=== PATIENT | female | born 2000 | race Two or more races ===

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

== ENCOUNTER 2022-02-10 01:19 | Inpatient (IN) ==
[2022-02-10 02:06] LABS: Bacteria,Urine Occasional /HPF (Few); Mucus,Urine Occasional /LPF (Occasional); RBC,Urine 1 /HPF (0-4)
[2022-02-10 02:07] LABS: Bilirubin,Urine Negative (Negative); Blood, Urine Negative (Negative); Glucose,Urine (UA) Negative (Negative); Ketones,Urine Negative (Negative); Nitrite,Urine Negative (Negative); Protein,Urine Negative (Negative); Urine Appearance Clear (Clear); Urine Color Yellow (Yellow); Urine Specific Gravity 1.015 (1.001-1.035); Urine pH 7.5 (4.5-8.0)
[2022-02-10] MEDS ORDERED: METHYLERGONOVINE 0.2 MG/1 ML AMP IM PRN (06:35)
[2022-02-10] MEDS ORDERED: miSOPROStoL 200 MCG TABLET RECTAL PRN (06:35)
[2022-02-10] MEDS ORDERED: ACETAMINOPHEN 500 MG TABLET PO PRN (06:35)
[2022-02-10] MEDS ORDERED: OXYTOCIN/LR 20 UNIT/1,000 ML BAG IV ONE ×2 (06:35→15:13)
[2022-02-10] MEDS ORDERED: ONDANSETRON 4 MG/2 ML VIAL IV PRN ×2 (06:35→15:13)
[2022-02-10] MEDS ORDERED: LACTATED RINGERS 500 ML IV PRN (06:35)
[2022-02-10] MEDS ORDERED: BUTORPHANOL 2 MG/ML VIAL IV PRN (06:35)
[2022-02-10] MEDS ORDERED: BUTORPHANOL 1 MG/ML VIAL IV PRN (06:35)
[2022-02-10] MEDS ORDERED: MEPERIDINE 25 MG/1 ML VIAL IV PRN (06:35)
[2022-02-10] MEDS ORDERED: CARBOPROST TROMETHAMINE 250 MCG/ML AMP IM PRN (06:35)
[2022-02-10] MEDS ORDERED: TRANEXAMIC ACID 1,000 MG in SODIUM CHLORIDE 0.9% 100 ML IV PRN (06:35)
[2022-02-10] MEDS ORDERED: FAMOTIDINE 20 MG TABLET PO PRN (06:35)
[2022-02-10] MEDS ORDERED: LACTATED RINGERS 1,000 ML IV SCH (07:00)
[2022-02-10] MEDS ORDERED: OXYTOCIN/LR 20 UNIT/1,000 ML BAG IV SCH (07:00)
[2022-02-10 07:05] LABS: Basophils % 0.2 % (0.0-0.8); Eosinophils % 0.4 % (0.00-10.9); Hematocrit 28.6 VOL% (35.7-47.0); Hemoglobin 8.3 GM/DL (12.0-16.0); Immature Granulocytes % 1.3 %; Immature Granulocytes Absolute 0.11 #; Lymphocytes # 1.8 10*3/uL (1.4-4.0); Lymphocytes % 21.1 % (21.3-54.2); Mean Corpuscular Volume 77.9 FL (87-102); Monocytes # 0.7 10*3/uL (0.11-0.8); Monocytes % 8.3 % (1.7-12.7); Neutrophils % 68.7 % (38.7-73.9); Platelet Count 186 T/CUMM (130-400); Red Blood Count 3.67 MC/CUMM (3.8-5.5); Red Cell Distribution Width 16.7 % (9.3-17.3); White Blood Count 8.3 T/CUMM (4-12)
[2022-02-10 07:30] LABS: Alanine Aminotransferase 13 U/L (13-56); Albumin 2.7 G/DL (3.4-5.0); Alkaline Phosphatase 115 U/L (45-117); Aspartate Amino Transferase 19 U/L (0-37); Bilirubin,Total < 0.39 MG/DL (0.20-1.00); Blood Urea Nitrogen 4 MG/DL (7-18); Carbon Dioxide 26 MMOL/L (21-32); Chloride 107 MMOL/L (98-107); Glucose 74 MG/DL (74-106); Osmolality,Calculated 270.7 MOS/KG (273-304); Potassium 3.2 MMOL/L (3.5-5.1); Sodium 138 MMOL/L (136-145); Total Protein 6.5 G/DL (6.4-8.2)
[2022-02-10] MEDS: POTASSIUM CHLORIDE 20 MEQ TABLET PO PRN ×4 (07:57→13:50)
[2022-02-10] MEDS ORDERED: miSOPROStoL 200 MCG TABLET ONE (13:22)
[2022-02-10] MEDS ORDERED: SODIUM CHLORIDE 0.9% 0 ML IV ONE (13:23)
[2022-02-10] MEDS ORDERED: TRANEXAMIC ACID 1,000 MG/10 ML VIAL ONE (13:23)
[2022-02-10] MEDS ORDERED: METHYLERGONOVINE 0.2 MG/1 ML AMP ONE (13:23)
[2022-02-10] MEDS ORDERED: CARBOPROST TROMETHAMINE 250 MCG/ML AMP IM ONE (13:24)
[2022-02-10] MEDS: MEPERIDINE 50 MG/1 ML VIAL IV PRN ×2 (13:45→15:06)
[2022-02-10] MEDS ORDERED: MEPERIDINE 50 MG/1 ML VIAL IM ONE (15:06)
[2022-02-10] MEDS ORDERED: LANOLIN 50% CREAM 0.3 OZ TUBE TOP PRN (15:13)
[2022-02-10] MEDS ORDERED: IBUPROFEN 800 MG TABLET PO PRN (15:13)
[2022-02-10] MEDS ORDERED: BISACODYL 10 MG SUPP RECTAL PRN (15:13)
[2022-02-10] MEDS ORDERED: RHO(D) IMMUNE GLOBULIN 300 MCG SYRINGE IM ONE (15:13)
[2022-02-10] MEDS ORDERED: WITCH HAZEL PADS 100/JAR TOP PRN (15:13)
[2022-02-10] MEDS ORDERED: oxyCODONE/ACETAMINOPHEN 5-325 MG TABLET PO PRN ×2 (15:13)
[2022-02-10] MEDS ORDERED: HYDROCORTISONE 2.5% RECTAL CREAM 30 GM TUBE TOP PRN (15:13)
[2022-02-10] MEDS ORDERED: DIPH/TET/ACEL PERT BOOSTER VACCINE 0.5 ML VIAL IM ONE (15:13)
[2022-02-10] MEDS ORDERED: BENZOCAINE 20%/MENTHOL 0.5% SPRAY 56 GM CAN TOP PRN (15:13)
[2022-02-10] MEDS ORDERED: MEASLES/MUMPS/RUBELLA VACCINE 0.5 ML VIAL SUBCUT ONE (15:13)
[2022-02-10] MEDS ORDERED: ACETAMINOPHEN 325 MG TABLET PO PRN (15:13)
[2022-02-10 15:17] LABS: Cord Venous Blood HCO3 22.5 MMOL/L; Cord Venous Blood PCO2 56.5 MMHG; Cord Venous Blood PO2 22.6
[2022-02-10] MEDS: DOCUSATE SODIUM 100 MG CAPSULE PO SCH (22:22)
[2022-02-11 05:11] LABS: Basophils % 0.3 % (0.0-0.8); Eosinophils % 0.3 % (0.00-10.9); Hemoglobin 8.7 GM/DL (12.0-16.0); Immature Granulocytes % 0.8 %; Immature Granulocytes Absolute 0.09 #; Lymphocytes # 1.4 10*3/uL (1.4-4.0); Lymphocytes % 11.9 % (21.3-54.2); Mean Corpuscular Volume 75.9 FL (87-102); Mean Platelet Volume 12.1 FL (9.6-12.0); Monocytes % 8.2 % (1.7-12.7); Neutrophils % 78.5 % (38.7-73.9); Platelet Count 195 T/CUMM (130-400); Red Blood Count 3.82 MC/CUMM (3.8-5.5); Red Cell Distribution Width 16.9 % (9.3-17.3); White Blood Count 11.8 T/CUMM (4-12)
[2022-02-11] MEDS: DOCUSATE SODIUM 100 MG CAPSULE PO SCH ×2 (09:58→21:08)
[2022-02-11] MEDS: MULTIVITAMIN (PRENATAL) TABLET PO SCH (09:58)
[2022-02-11] MEDS: FERROUS SULFATE 325 MG TABLET PO SCH (21:09)
[2022-02-12 08:04] VITALS: BP 123/62
[2022-02-12] MEDS: MULTIVITAMIN (PRENATAL) TABLET PO SCH (08:41)
[2022-02-12] MEDS: FERROUS SULFATE 325 MG TABLET PO SCH (08:41)
[2022-02-12] MEDS: DOCUSATE SODIUM 100 MG CAPSULE PO SCH (08:42)
== END 2022-02-12 11:45 | disposition home or self-care (01) | DRG 560 ==
LOC: N.LDOUT 01:19 → N.LD 01:23 → N.OB 02-11 11:17
PROVIDERS: ADMIT Obstetrics & Gynecology; ATTEND Obstetrics & Gynecology